=== PATIENT | female | born 1985 | race Caucasian/White ===

== ENCOUNTER → 2021-09-16 10:22 | Outpatient (BNVA) | payer MEDICAID, SELFPAY | PROVIDERS: PCP Registered Nurse; Referring Provider Registered Nurse; Visit Provider Physician Assistant Surgical ==

== ENCOUNTER → 2021-09-17 08:08 | Outpatient (BNVA) | payer MEDICAID, SELFPAY | PROVIDERS: PCP Registered Nurse; Visit Provider Surgery ==